=== PATIENT | male | born 1985 ===

== ENCOUNTER 2016-10-28 15:56 | Observation (INO) | payer OTHER ==
[2016-10-28 16:40] VITALS: O2SAT 99
[2016-10-28] MEDS ORDERED: Sodium Chloride 0.9% 1,000 ML IV STA (17:29)
--- NOTE | 2016-10-28 17:43 | ED PDOC ---
HPI: Abdomen Time Seen by Provider: 10/28/16 17:13 Chief Complaint (Nursing): Abdominal Pain Chief Complaint (Provider): Abdominal Pain/Vomiting History Per: Patient History/Exam Limitations: no limitations Onset/Duration Of Symptoms: Days (x1) Associated Symptoms: Fever, Vomiting, Diarrhea Additional Complaint(s): 17:13 Lloyd Rodriguez is a 31 year old male that presents to the ED with a chief complaint of abdominal pain, vomiting, and diarrhea. Patient states that he had diarrhea yesterday with an associated fever and that when he woke up this morning, he had abdominal pain and began vomiting. He was seen in the ED last month for a similar issue. Patient says that he has octopus for dinner last night, and that his pain is not worsened with food. PMD: None Past Medical History Reviewed: Historical Data, Nursing Documentation, Vital Signs Vital Signs: Last Vital Signs Temp 98.4 F 10/29/16 00:36 Pulse 80 10/29/16 00:36 Resp 16 10/29/16 00:36 BP 124/75 10/29/16 00:36 Pulse Ox 99 10/29/16 00:36 - Medical History PMH: Hypothyroidism Denies: Chronic Kidney Disease - Family History Family History: States: Unknown Family Hx - Immunization History Hx Tetanus Toxoid Vaccination: No Hx Influenza Vaccination: No Hx Pneumococcal Vaccination: No - Home Medications Home Medications: Ambulatory Orders Medication Instructions Recorded Flecainide Acetate 50 mg PO BID 09/25/13 Thyroid [Bronson Thyroid] 30 mg PO DAILY 09/25/13 Famotidine [Pepcid] 20 mg PO Q12 #14 tab 11/18/15 Ondansetron ODT [Zofran ODT] 4 mg PO Q6 PRN #16 odt 11/18/15 Ciprofloxacin [Cipro] 500 mg PO BID 7 Days 09/21/16 metroNIDAZOLE [Flagyl] 500 mg PO BID 7 Days 09/21/16 Ciprofloxacin [Cipro] 500 mg PO BID 7 Days 10/29/16 metroNIDAZOLE [Flagyl] 500 mg PO BID 7 Days 10/29/16 - Allergies Allergies/Adverse Reactions: Allergies Allergy/AdvReac Type Severity Reaction Status Date / Time No Known Allergies Allergy Verified 10/28/16 16:34 Review of Systems Constitutional: Positive for: Fever Gastrointestinal: Positive for: Vomiting, Abdominal Pain, Diarrhea Physical Exam - Reviewed Nursing Documentation Reviewed: Yes Vital Signs Reviewed: Yes - Physical Exam Appears: Positive for: Non-toxic, No Acute Distress Head Exam: Positive for: ATRAUMATIC, NORMOCEPHALIC Skin: Positive for: Normal Color, Dry ENT: Positive for: Other (dry mucous membranes). Negative for: Normal ENT Inspection Cardiovascular/Chest: Positive for: Regular Rate, Rhythm. Negative for: Murmur Respiratory: Positive for: Normal Breath Sounds. Negative for: Respiratory Distress Gastrointestinal/Abdominal: Positive for: Soft, Tenderness (RUQ tenderness), Other (negative Lloyd's sign). Negative for: Guarding, Rebound Neurologic/Psych: Positive for: Alert, Oriented - Laboratory Results Result Diagrams: 10/28/16 18:06 10/28/16 18:06 - ECG O2 Sat by Pulse Oximetry: 99 (RA) Pulse Ox Interpretation: Normal - CT Scan/US RUQ ultrasound Other Rad Studies (CT/US): Radiology Report Reviewed (Mild fatty infiltration of the liver with minimal focal fatty sparing adjacent to the gallbladder fossa. The remainder of the examination is unremarkable. Suboptimal visualization of pancreas.) Medical Decision Making Medical Decision Makin:25 Initial Impression: Abdominal Pain/Vomiting/Diarrhea Initial Plan: * CMP * CBC * PTT * PT * Lipase * Urine dipstick * Urinalysis * Sodium Chloride 1000 mL at 1000 mLs/hr * Morphine 2 mg IV * Zofran 4 mg IV * US Abdomen * Reevaluation Scribe Attestation: Documented by Yuli Anderson, acting as a scribe for Lizzie Owens MD. Provider Scribe Attestation: All medical record entries made by the Scribe were at my direction and personally dictated by me. I have reviewed the chart and agree that the record accurately reflects my personal performance of the history, physical exam, medical decision making, and the department course for this patient. I have also personally directed, reviewed, and agree with the discharge instructions and disposition. ED OBSERVATION Time of observation admission: 18:50 Disposition - Clinical Impression Clinical Impression: Colitis - Patient ED Disposition Is Patient to be Admitted: Transfer of Care - Disposition Disposition: Transfer of Care Disposition Time: 19:00 Condition: IMPROVED Patient Signed Over To: Ady Carballo Handoff Comments: Pending CT.
[2016-10-28 18:12] LABS: BASO # 0.1 K/uL (0.0-0.2); BASO % 0.4 % (0.0-2.0); EOS % 0.1 % (0.0-4.0); LYMPH # 0.9 K/uL (1.0-4.3); LYMPH % 4.1 % (20.0-40.0); MEAN CELL VOLUME 89.8 fl (80.0-94.0); MEAN CORPUSCULAR HEMOGLOBIN 30.2 pg (27.0-31.0); MEAN CORPUSCULAR HGB CONC 33.6 g/dL (33.0-37.0); MEAN PLATELET VOLUME 8.5 fl (7.2-11.7); MONO % 4.6 % (0.0-10.0); NEUT # 19.3 K/uL (1.8-7.0); NEUT % 90.8 % (50.0-75.0); PLATELET COUNT 250 K/uL (130-400); RED CELL DISTRIBUTION WIDTH 13.7 % (11.5-14.5); WHITE BLOOD COUNT 21.2 K/uL (4.8-10.8)
[2016-10-28 18:30] LABS: ALB/GLOB RATIO 1.4 (1.0-2.1); ALKALINE PHOSPHATASE 113 U/L (38-126); ALT/SGPT 49 U/L (21-72); AST/SGOT 46 U/L (17-59); BILIRUBIN,TOTAL 0.6 mg/dl (0.2-1.3); BLOOD UREA NITROGEN 14 mg/dl (9-20); CALCIUM 9.8 mg/dL (8.4-10.2); CARBON DIOXIDE 23 mmol/L (22-30); CHLORIDE 103 mmol/L (98-107); GFR AFRICAN-AMERICAN > 60; GLUCOSE,RANDOM 99 mg/dL (75-110); LIPASE 32 U/L (23-300); POTASSIUM 4.3 MMOL/L (3.6-5.0); SODIUM 144 mmol/l (132-148); TOTAL PROTEIN 8.3 G/DL (6.3-8.2)
[2016-10-28 18:38] LABS: RBC URINE 5 /hpf (0-3); URINE BACTERIA FEW (<OCC); URINE BILIRUBIN NEGATIVE (NEGATIVE); URINE BLOOD NEGATIVE (NEGATIVE); URINE COLOR AMBER (YELLOW); URINE GLUCOSE (UA) NEG (Normal); URINE KETONE 80 mg/dL (NEGATIVE); URINE LEUKOCYTE ESTERASE TRACE Leu/uL (Negative); URINE PROTEIN 100 mg/dL (NEGATIVE); URINE UROBILINOGEN 0.2-1.0 mg/dL (0.2-1.0); WBC URINE 4 /hpf (0-5)
[2016-10-28] MEDS ORDERED: Iohexol 240 (50 ml) PO STA (18:51)
[2016-10-28 19:50] LABS: NEUTROPHIL 89 % (42-75); TOTAL CELLS COUNTED 100
--- NOTE | 2016-10-28 20:10 | ED PDOC ---
- Laboratory Results Result Diagrams: 10/28/16 18:06 10/28/16 18:06 - ECG O2 Sat by Pulse Oximetry: 99 (RA) Medical Decision Making Medical Decision Makin:00 Patient transferred over to me by Dr. Lizzie Owens pending ED workup. 0024: CT A/P impression: 1. Questionable mild diffuse colonic wall thickening versus underdistention. This could represent a mild colitis. Please correlate clinically. 0029: Patient feeling better and will be referred to GI outpatient. Stable for d /c. Scribe Attestation: Documented by Yuli Anderson, acting as a scribe for Ady Carballo MD. Provider Scribe Attestation: All medical record entries made by the Scribe were at my direction and personally dictated by me. I have reviewed the chart and agree that the record accurately reflects my personal performance of the history, physical exam, medical decision making, and the department course for this patient. I have also personally directed, reviewed, and agree with the discharge instructions and disposition. Disposition - Clinical Impression Clinical Impression: Colitis - POA Present On Arrival: None - Disposition Disposition: Routine/Home Disposition Time: 00:30 Condition: IMPROVED
[2016-10-28] MEDS ORDERED: Iohexol 300 100 ML IJ ONE (20:46)
[2016-10-28] MEDS ORDERED: Sodium Chloride 0.9% 50 ML IV ONE (20:47)
--- NOTE | 2016-10-29 00:25 | CT ---
EXAM: CT Abdomen and Pelvis With Intravenous Contrast CLINICAL HISTORY: 31 years old, male; Pain; Abdominal pain; Generalized; Additional info: R sided abd pain. Fever diarrhiea. Sent ed physician doc. TECHNIQUE: Axial computed tomography images of the abdomen and pelvis with intravenous contrast. This CT exam was performed using one or more of the following dose reduction techniques: automated exposure control, adjustment of the mA and/or kV according to patient size, and/or use of iterative reconstruction technique. Coronal and sagittal reformatted images were created and reviewed. CONTRAST: 95 mL of [id number] administered intravenously. COMPARISON: CT - ABD PELVIS PO IV CONTRAST 09/21/2016 12:56:39 AM FINDINGS: Lower thorax: There is minimal bibasilar atelectasis. ABDOMEN: Liver: There is a diffuse decrease in hepatic parenchymal density, consistent with fatty infiltration. Gallbladder and bile ducts: The gallbladder is contracted but otherwise normal. No calcified stones. No ductal dilation. Pancreas: The pancreas is normal. No ductal dilation. Spleen: The spleen is normal. Adrenals: The adrenal glands are normal. Kidneys and ureters: The kidneys are normal. No hydronephrosis. Stomach and bowel: Questionable mild diffuse colonic wall thickening versus underdistention. This could represent a mild colitis. Please correlate clinically. The stomach is normal. There is no evidence of intestinal obstruction. Appendix: A normal appendix is identified. PELVIS: Bladder: Bladder is decompressed. Reproductive: The prostate gland and seminal vesicles are normal. ABDOMEN and PELVIS: Intraperitoneal space: There is no evidence of free intraperitoneal fluid. There is no free intraperitoneal air. Bones/joints: No acute fracture. No dislocation. Soft tissues: There is a tiny fat containing right inguinal hernia. Vasculature: The aorta is normal. No abdominal aortic aneurysm. Lymph nodes: There is no evidence of lymphadenopathy. IMPRESSION: 1. Questionable mild diffuse colonic wall thickening versus underdistention. This could represent a mild colitis. Please correlate clinically.
[2016-10-29 00:37] VITALS: BP 124/75; PULSE 80; RESP 16; TEMP 98.4
--- NOTE | 2016-10-29 11:30 | US ---
HISTORY: RUQ pain, vomiting, diarrhea COMPARISON: None. TECHNIQUE: Sonographic evaluation of the right upper quadrant of the abdomen. FINDINGS: LIVER: Measures 14.3 cm in length. Probable mild diffuse increased echogenicity of the liver parenchyma. Focal fatty sparing noted about gallbladder. No mass. No biliary dilatation. GALLBLADDER: Unremarkable. No gallstones. COMMON BILE DUCT: Measures 5 mm. No stones. No dilatation. PANCREAS: Could not be adequately evaluated due to overlying bowel gas. RIGHT KIDNEY: Measures 11.4 cm in length. Normal echogenicity. No calculus, mass, or hydronephrosis. AORTA: No aneurysmal dilatation. IVC: Unremarkable. OTHER FINDINGS: None . IMPRESSION: Mild fatty infiltration of the liver with minimal focal fatty sparing adjacent to the gallbladder fossa. The remainder of the examination is unremarkable. Suboptimal visualization of pancreas.
== END 2016-10-29 00:29 | disposition home or self-care (01) ==
LOC: H.ER 15:56 → H.EROBSV 18:50
PROVIDERS: ADMIT Emergency Medicine; ATTEND Emergency Medicine
DX: K52.9 Noninfective gastroenteritis and colitis, unspecified (principal); E03.9 Hypothyroidism, unspecified

== ENCOUNTER 2017-11-25 13:05 | Emergency (ER) | payer SELFPAY ==
[2017-11-25 13:35] VITALS: BP 132/79; PULSE 61; RESP 16; TEMP 97.9; O2SAT 99
[2017-11-25] MEDS ORDERED: Naproxen 500 MG TAB PO STA (14:31)
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
== END 2017-11-25 14:45 | disposition home or self-care (01) ==
LOC: H.ER 13:05
DX: M54.5 Low back pain (principal); R21 Rash and other nonspecific skin eruption; E03.9 Hypothyroidism, unspecified

== ENCOUNTER 2018-08-28 05:15 | Observation (INO) | payer MEDICAID ==
--- NOTE | 2018-08-28 06:09 | ED PDOC ---
HPI: Chest Pain Time Seen by Provider: 08/28/18 05:20 Chief Complaint (Nursing): Abdominal Pain Chief Complaint (Provider): Abdominal Pain History Per: Patient, Family (mother) Onset/Duration Of Symptoms: Persistent Current Symptoms Are (Timing): Still Present Quality: "Pain" Additional Complaint(s): 32 year old male with a history of HTN presents to the ED with chronic abdominal pain and vomiting since last night. Patient's mother, who he lives with, reports that around 11 pm last night, he began vomiting a bilious substance multiple times with severe right sided abdominal pain. According to mother, he has experienced abdominal pain for 14 years. Denies fever. PMD: none provided Past Medical History Reviewed: Historical Data, Nursing Documentation, Vital Signs Vital Signs: Last Vital Signs Temp 98.1 F 08/28/18 05:34 Pulse 75 08/28/18 05:34 Resp 18 08/28/18 05:34 BP 147/105 H 08/28/18 05:34 Pulse Ox 100 08/28/18 05:34 - Medical History PMH: Hypothyroidism Denies: Chronic Kidney Disease - Surgical History Surgical History: No Surg Hx - Family History Family History: States: Unknown Family Hx - Social History Current smoker - smoking cessation education provided: No Alcohol: None Drugs: Denies - Immunization History Hx Tetanus Toxoid Vaccination: No Hx Influenza Vaccination: No Hx Pneumococcal Vaccination: No - Home Medications Home Medications: Ambulatory Orders Medication Instructions Recorded RX: No Known Home Med 08/28/18 - Allergies Allergies/Adverse Reactions: Allergies Allergy/AdvReac Type Severity Reaction Status Date / Time No Known Allergies Allergy Verified 08/28/18 05:40 Review of Systems ROS Statement: Except As Marked, All Systems Reviewed And Found Negative Gastrointestinal: Positive for: Vomiting (bilious), Abdominal Pain (right sided). Negative for: Constipation, Hematochezia, Hematemesis Physical Exam - Reviewed Nursing Documentation Reviewed: Yes Vital Signs Reviewed: Yes - Physical Exam Appears: Positive for: No Acute Distress Head Exam: Positive for: ATRAUMATIC, NORMAL INSPECTION, NORMOCEPHALIC Skin: Positive for: Normal Color, Warm, Dry Eye Exam: Positive for: Normal appearance, EOMI, PERRL Neck: Positive for: Normal, Painless ROM, Supple Cardiovascular/Chest: Positive for: Regular Rate, Rhythm. Negative for: Murmur Respiratory: Positive for: Normal Breath Sounds. Negative for: Respiratory Distress Gastrointestinal/Abdominal: Positive for: Bowel Sounds, Soft, Tenderness (right sided tenderness). Negative for: Mass, Guarding, Rebound Extremity: Positive for: Normal ROM. Negative for: Deformity Neurologic/Psych: Positive for: Alert, Oriented (x 3). Negative for: Motor/Sensory Deficits - Laboratory Results Result Diagrams: 08/28/18 12:25 08/28/18 06:15 - ECG O2 Sat by Pulse Oximetry: 100 (RA) Pulse Ox Interpretation: Normal Medical Decision Making Medical Decision Makin:12 Impression: abdominal pain and vomiting Initial Plan: , acut e on chronic --CMP --CBC --Omnipaque 50 ml PO --Toradol 30 mg IV --NS IV --Zofran 4 mg IV 07:00 --Patient will be signed out to Dr. Stover pending workup and disposition. ----- Scribe Attestation: Documented by Simran Vance acting as a scribe for Edil Bashir MD Provider Scribe Attestation: All medical record entries made by the Scribe were at my direction and personally dictated by me. I have reviewed the chart and agree that the record accurately reflects my personal performance of the history, physical exam, medical decision making, and the department course for this patient. I have also personally directed, reviewed, and agree with the discharge instructions and disposition. Disposition - Clinical Impression Clinical Impression: Abdominal pain, Leukocytosis - Patient ED Disposition Is Patient to be Admitted: Transfer of Care - Disposition Disposition: Transfer of Care Disposition Time: 07:00 Condition: FAIR Patient Signed Over To: Riki Stover
[2018-08-28] MEDS ORDERED: Sodium Chloride 0.9% 1,000 ML IV STA (06:12)
[2018-08-28] MEDS ORDERED: Iohexol 240 (50 ml) PO ONE (06:12)
[2018-08-28] MEDS ORDERED: Iohexol 240 (50 ml) ONE (06:16)
--- NOTE | 2018-08-28 07:22 | ED PDOC ---
- Laboratory Results Result Diagrams: 08/28/18 12:25 08/28/18 06:15 - ECG O2 Sat by Pulse Oximetry: 100 (RA) Pulse Ox Interpretation: Normal Medical Decision Making Medical Decision Makin Patient was endorsed by Dr. Bashir, pending work up. Scribe Attestation: Documented by Justen Wagoner, acting as a scribe for Riki Stover MD. No significant drop in WBC with left shift on CBC. CT abd/pelvis unremarkable. Discussed with Dr. Guy will start IV antibiotics for colitis and obtain GI consult. Provider Scribe Attestation: All medical record entries made by the Scribe were at my direction and personally dictated by me. I have reviewed the chart and agree that the record accurately reflects my personal performance of the history, physical exam, medical decision making, and the department course for this patient. I have also personally directed, reviewed, and agree with the discharge instructions and disposition. Disposition - Clinical Impression Clinical Impression: Abdominal pain, Leukocytosis - POA Present On Arrival: None - Disposition Disposition: Hospitalized as Observation Patient Disposition Time: 13:01 Condition: FAIR Forms: [employer] (Irish)
[2018-08-28 08:00] LABS: BASO % 0.1 % (0.0-2.0); EOS % 0.1 % (0.0-4.0); HEMOGLOBIN 16.2 g/dL (12.0-18.0); LYMPH # 1.3 K/uL (1.0-4.3); LYMPH % 6.6 % (20.0-40.0); MEAN CELL VOLUME 92.8 fl (80.0-94.0); MEAN CORPUSCULAR HEMOGLOBIN 30.1 pg (27.0-31.0); MEAN CORPUSCULAR HGB CONC 32.5 g/dL (33.0-37.0); MEAN PLATELET VOLUME 8.9 fl (7.2-11.7); MONO # 0.5 K/uL (0.0-0.8); MONO % 2.9 % (0.0-10.0); NEUT # 17.1 K/uL (1.8-7.0); NEUT % 90.3 % (50.0-75.0); NRBC % 0.1 % (0.0-0.0); PLATELET COUNT 344 K/uL (130-400); RBC 5.38 Mil/uL (4.40-5.90); RED CELL DISTRIBUTION WIDTH 13.3 % (11.5-14.5)
[2018-08-28 08:06] LABS: ALB/GLOB RATIO 1.5 (1.0-2.1); ALT/SGPT 62 U/L (21-72); AST/SGOT 37 U/L (17-59); BLOOD UREA NITROGEN 13 mg/dl (9-20); CALCIUM 10.2 mg/dL (8.4-10.2); GFR NON-AFRICAN AMERICAN > 60
--- NOTE | 2018-08-28 09:38 | CT ---
Date of service: 08/28/2018 PROCEDURE: CT Abdomen and Pelvis without IV contrast HISTORY: abd pain r sided COMPARISON: Comparison is made with 10/28/2016 TECHNIQUE: Contrast dose: 0 IV contrast. Axial and reformatted coronal and sagittal CT images of the abdomen and pelvis were obtained after oral contrast administration. No IV contrast was given. Radiation dose: Total exam DLP = 836.74 mGy-cm. This CT exam was performed using one or more of the following dose reduction techniques: Automated exposure control, adjustment of the mA and/or kV according to patient size, and/or use of iterative reconstruction technique. FINDINGS: LOWER THORAX: Unremarkable. LIVER: Heterogeneous attenuation of the liver which is mildly enlarged noted. Findings likely represent moderate hepatic steatosis. GALLBLADDER AND BILE DUCTS: Unremarkable. PANCREAS: Unremarkable. No gross lesion or ductal dilatation. SPLEEN: Unremarkable. ADRENALS: Unremarkable. No mass. KIDNEYS AND URETERS: Slightly dilated right kidney collecting system without evidence of obstructing stone. No evidence of significant perinephric stranding. No hydronephrosis. No solid mass. VASCULATURE: Unremarkable. No aortic aneurysm. No aortic atherosclerotic calcification or mural plaque present. BOWEL: Unremarkable. No obstruction. No gross mural thickening. Few colonic diverticulosis noted without evidence of diverticulitis. APPENDIX: Normal appendix. PERITONEUM: Unremarkable. No free fluid. No free air. LYMPH NODES: Unremarkable. No enlarged lymph nodes. BLADDER: Unremarkable. REPRODUCTIVE: Unremarkable. BONES: No acute fracture. OTHER FINDINGS: There is a small fat containing right inguinal hernia noted. IMPRESSION: No evidence of hydronephrosis or obstructing renal calculi. No evidence of cholecystitis pancreatitis or appendicitis. Small fat containing right inguinal hernia noted.
[2018-08-28 12:12] LABS: LYMPHOCYTE 8 % (20-50); MONOCYTE 3 % (0-10); NEUTROPHIL 89 % (42-75); PLATELET ESTIMATE NORMAL (NORMAL); TOTAL CELLS COUNTED 100
[2018-08-28 12:36] LABS: BASO % 0.2 % (0.0-2.0); HEMOGLOBIN 15.1 g/dL (12.0-18.0); LYMPH # 1.4 K/uL (1.0-4.3); LYMPH % 7.7 % (20.0-40.0); MEAN CELL VOLUME 89.3 fl (80.0-94.0); MEAN CORPUSCULAR HEMOGLOBIN 30.2 pg (27.0-31.0); MEAN CORPUSCULAR HGB CONC 33.9 g/dL (33.0-37.0); MEAN PLATELET VOLUME 8.6 fl (7.2-11.7); MONO # 0.7 K/uL (0.0-0.8); MONO % 3.9 % (0.0-10.0); NEUT # 16.5 K/uL (1.8-7.0); NEUT % 88.2 % (50.0-75.0); RBC 4.99 Mil/uL (4.40-5.90); RED CELL DISTRIBUTION WIDTH 13.3 % (11.5-14.5); WHITE BLOOD COUNT 18.7 K/uL (4.8-10.8)
[2018-08-28] MEDS ORDERED: metroNIDAZOLE 500mg/100ml NS 100 ML IVPB STA (12:56)
[2018-08-28] MEDS ORDERED: cefTRIAXone (Rocephin) 1 gm Inj ONE (13:42)
[2018-08-28 13:56] LABS: VENOUS BLOOD GAS PCO2 44 mmHg (40-60); VENOUS BLOOD GAS PO2 65 mm/Hg (30-55)
--- NOTE | 2018-08-28 14:21 | RAD ---
Date of service: 08/28/2018 HISTORY: Leukocytosis COMPARISON: No prior. TECHNIQUE: Chest PA and lateral FINDINGS: LUNGS: No active pulmonary disease. PLEURA: No significant pleural effusion identified. No pneumothorax apparent. CARDIOVASCULAR: No aortic atherosclerotic calcification present. Normal cardiac size. No pulmonary vascular congestion. OSSEOUS STRUCTURES: No significant abnormalities. VISUALIZED UPPER ABDOMEN: Normal. OTHER FINDINGS: None. IMPRESSION: No active disease.
[2018-08-28 14:52] LABS: SQUAMOUS EPITHIAL < 1 /hpf (0-5); URINE AMORPHOUS SEDIMENT RARE /ul (<OCC); URINE BILIRUBIN NEGATIVE (NEGATIVE); URINE BLOOD NEGATIVE (NEGATIVE); URINE CLARITY SLIGHTY-CLOUDY (Clear); URINE COLOR YELLOW (YELLOW); URINE GLUCOSE (UA) NEG (NEGATIVE); URINE LEUKOCYTE ESTERASE NEG Leu/uL (Negative); URINE PROTEIN 30 mg/dL (NEGATIVE); URINE UROBILINOGEN 0.2-1.0 mg/dL (0.2-1.0)
[2018-08-28] MEDS ORDERED: metroNIDAZOLE 500mg/100ml NS 100 ML IVPB ONE (15:31)
[2018-08-28] MEDS ORDERED: Morphine 4 MG/ML VIAL IVP PRN (17:25)
[2018-08-28 17:31] VITALS: RESP 20
[2018-08-28] MEDS: Dextrose 5%/0.45% NS 1,000 ML IV SCH (18:01)
[2018-08-29] MEDS: Dextrose 5%/0.45% NS 1,000 ML IV SCH (05:31)
--- NOTE | 2018-08-29 09:50 | CP.PCM.CON ---
History of Present Illness - History of Present Illness History of Present Illness: GI consult note for Dr. Aldana Consulted for abdominal pain, nausea, diarrhea Pt is a 32M with PMH of HTN who presented to the ED for epigastric abdominal pain, nausea, vomiting, and diarrhea. Pain has improved but is still present. No further nausea or vomiting since being admitted but still having episodes of diarrhea. Denies any melena, hematochezia, hematemesis, or bilious emesis, fevers, chills, dysuria, hematuria, or any other symptoms. 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 Patient has been to the ED approximately once a year for the past several years for similar symptoms with CT showing possible mild colitis and US's showing no gallstones and fatty liver in 09/2016 PMH: HTN PSH: L Orchiectomy as a child ALL: NKDA Social: drinks several shots of liquour socially a few times a month, smokes hooka occasionally, denies drugs Family history: mother had surgery for gallstones and kidney stones Review of Systems - Review of Systems All systems: reviewed and no additional remarkable complaints except (as per HPI) Past Patient History - Past Medical History & Family History Past Medical History?: Yes Pertinent Family History: mother: kidney stones with surgery and gallstones with surgery - Past Social History Smoking Status: hooka occasionally Alcohol: Social Drugs: Denies - CARDIAC Hx Cardiac Disorders: No - PULMONARY Hx Respiratory Disorders: No - NEUROLOGICAL Hx Neurological Disorder: No - HEENT Hx HEENT Problems: No - RENAL Hx Chronic Kidney Disease: No - ENDOCRINE/METABOLIC Hx Hypothyroidism: Yes - HEMATOLOGICAL/ONCOLOGICAL Hx Blood Disorders: No - INTEGUMENTARY Hx Dermatological Problems: No - MUSCULOSKELETAL/RHEUMATOLOGICAL Hx Musculoskeletal Disorders: No Hx Falls: No - GASTROINTESTINAL Hx Gastrointestinal Disorders: Yes Hx Nausea: Yes Hx Vomiting: Yes Other/Comment: Abdominal pain - GENITOURINARY/GYNECOLOGICAL Hx Genitourinary Disorders: No - PSYCHIATRIC Hx Psychophysiologic Disorder: No Hx Substance Use: No - SURGICAL HISTORY Hx Surgeries: Yes (Left testicle removed) - ANESTHESIA Hx Anesthesia: Yes Hx Anesthesia Reactions: No Meds Allergies/Adverse Reactions: Allergies Allergy/AdvReac Type Severity Reaction Status Date / Time No Known Allergies Allergy Verified 08/28/18 05:40 - Medications Medications: Current Medications Dextrose/Sodium Chloride (Dextrose 5%/0.45% Ns 1000 Ml) 1,000 mls @ 80 mls/hr IV .[id number] ELVIS Stop: 08/29/18 17:25 Last Admin: 08/29/18 05:31 Dose: 80 mls/hr Morphine Sulfate (Morphine) 2 mg IVP Q4 PRN PRN Reason: Pain, moderate (4-7) Last Admin: 08/28/18 18:09 Dose: 2 mg Physical Exam - Constitutional Appears: Well, Non-toxic, No Acute Distress - Head Exam Head Exam: ATRAUMATIC, NORMOCEPHALIC - Eye Exam Eye Exam: Normal appearance. absent: Conjunctival injection, Scleral icterus - ENT Exam ENT Exam: Mucous Membranes Moist - Respiratory Exam Respiratory Exam: NORMAL BREATHING PATTERN. absent: Accessory Muscle Use, Respiratory Distress - GI/Abdominal Exam GI & Abdominal Exam: Soft. absent: Distended, Rebound, Tenderness Additional comments: briscoe's sign negative - Extremities Exam Extremities exam: Positive for: pedal pulses present. Negative for: calf tenderness, pedal edema - Neurological Exam Neurological exam: Alert, Oriented x3 - Psychiatric Exam Psychiatric exam: Normal Affect, Normal Mood - Skin Skin Exam: Dry, Normal Color, Warm Results - Vital Signs Recent Vital Signs: Last Vital Signs Temp 98 F 08/29/18 08:16 Pulse 54 L 08/29/18 08:16 Resp 20 08/29/18 08:16 BP 151/79 H 08/29/18 08:16 Pulse Ox 97 08/29/18 08:16 - Labs Result Diagrams: 08/28/18 12:25 08/28/18 06:15 Labs: Laboratory Results - last 24 hr 08/28/18 08/28/18 08/28/18 06:15 12:25 13:50 WBC 18.7 H RBC 4.99 Hgb 15.1 Hct 44.6 MCV 89.3 D MCH 30.2 MCHC 33.9 RDW 13.3 Plt Count 277 MPV 8.6 Neut % (Auto) 88.2 H Lymph % (Auto) 7.7 L Ransom % (Auto) 3.9 Eos % (Auto) 0.0 Baso % (Auto) 0.2 Neut # (Auto) 16.5 H Lymph # (Auto) 1.4 Ransom # (Auto) 0.7 Eos # (Auto) 0.0 Baso # (Auto) 0.0 Neutrophils % (Manual) 89 H Lymphocytes % (Manual) 8 L Monocytes % (Manual) 3 Platelet Estimate Normal RBC Morphology Normal pO2 65 H VBG pH 7.40 VBG pCO2 44 VBG HCO3 26.4 VBG Total CO2 28.7 H VBG O2 Sat (Calc) 96.4 H VBG Base Excess 2.0 VBG Potassium 4.1 Sodium 136.0 Chloride 105.0 Glucose 109 Lactate 1.4 FiO2 21.0 Venous Blood Potassium 4.1 Urine Color Urine Clarity Urine pH Ur Specific [place] Urine Protein Urine Glucose (UA) Urine Ketones Urine Blood Urine Nitrate Urine Bilirubin Urine Urobilinogen Ur Leukocyte Esterase Urine Microscopic WBC Ur Squamous Epith Cells Amorphous Sediment 08/28/18 14:23 WBC RBC Hgb Hct MCV MCH MCHC RDW Plt Count MPV Neut % (Auto) Lymph % (Auto) Ransom % (Auto) Eos % (Auto) Baso % (Auto) Neut # (Auto) Lymph # (Auto) Ransom # (Auto) Eos # (Auto) Baso # (Auto) Neutrophils % (Manual) Lymphocytes % (Manual) Monocytes % (Manual) Platelet Estimate RBC Morphology pO2 VBG pH VBG pCO2 VBG HCO3 VBG Total CO2 VBG O2 Sat (Calc) VBG Base Excess VBG Potassium Sodium Chloride Glucose Lactate FiO2 Venous Blood Potassium Urine Color Yellow Urine Clarity Slighty-cloudy Urine pH 7.0 Ur Specific [place] 1.029 Urine Protein 30 Urine Glucose (UA) Neg Urine Ketones Negative Urine Blood Negative Urine Nitrate Negative Urine Bilirubin Negative Urine Urobilinogen 0.2-1.0 Ur Leukocyte Esterase Neg Urine Microscopic WBC 1 Ur Squamous Epith Cells < 1 Amorphous Sediment Rare H Assessment & Plan - Assessment and Plan (Free Text) Assessment: 32M with abdominal pain, nausea, vomiting and diarrhea Plan: Advance to [facility] as tolerated F/U amylase and lipase IVF PRN nausea and pain medication May consider abdominal US Seen and discussed with Dr. Jovan Perla, PGY2
[2018-08-29] MEDS ORDERED: Ciprofloxacin 400mg/200ml D5W 400 MG/200 ML BAG IVPB SCH (10:00)
[2018-08-29 10:50] LABS: HEMOGLOBIN 15.9 g/dL (12.0-18.0); MEAN CELL VOLUME 92.2 fl (80.0-94.0); MEAN CORPUSCULAR HEMOGLOBIN 30.3 pg (27.0-31.0); MEAN CORPUSCULAR HGB CONC 32.8 g/dL (33.0-37.0); RBC 5.25 Mil/uL (4.40-5.90); RED CELL DISTRIBUTION WIDTH 13.1 % (11.5-14.5); WHITE BLOOD COUNT 11.4 K/uL (4.8-10.8)
[2018-08-29 11:00] LABS: AMYLASE 52 U/L (30-110); BLOOD UREA NITROGEN 10 mg/dl (9-20); GFR NON-AFRICAN AMERICAN > 60; LIPASE 23 U/L (23-300)
[2018-08-29] MEDS: metroNIDAZOLE 500mg/100ml NS 100 ML IVPB SCH ×2 (12:04→17:48)
--- NOTE | 2018-08-29 14:43 | CP.PCM.HP ---
History of Present Illness - History of Present Illness History of Present Illness: CC: Abdominal pain. 32 y/o M, PMHx of Mild Colitis, L testicle removed at 3 yrs old and several admissions to hospital 2nd to abdominal pain. Pt appear on 08/28/18 to ER [facility]ONY, Greta, c/o of generalized abdominal pain radiated to lower quadrants R>L, described as constant, cramping, moderate intensity 7:10, associated to nausea, vomiting, non bloody, diarrhea with no relief. Onset of pain day [employer] after he ate a Hamburger. Worsening symptoms: Increased irritability from pain. Aggravated factor: Changing positions. Pt denied: Fever, chills, urinary symptoms, CP, palpitations, back pain, SOB, sick contact, recent travel out of [facility]. Abd/Pelvis CT: No evidence of Hydronephrosis or obstructing renal calculi, no Cholecystitis, Pancreatitis or Appendicitis. CXR: No active disease. Present on Admission - Present on Admission Any Indicators Present on Admission: No Review of Systems - Constitutional Constitutional: Other (negative) - EENT Eyes: Other (negative) Ears: Other (negative) Nose/Mouth/Throat: Other (negative) - Cardiovascular Cardiovascular: Other (negative) - Respiratory Respiratory: Other (negative) - Gastrointestinal Gastrointestinal: Abdominal Pain, Diarrhea, Nausea, Vomiting - Genitourinary Genitourinary: Other (negative) - Musculoskeletal Musculoskeletal: Other (negative) - Integumentary Integumentary: Other (negative) - Neurological Neurological: Other (negative) - Psychiatric Psychiatric: Other (negative) - Endocrine Endocrine: Other (negative) - Hematologic/Lymphatic Hematologic: Other (negative) Past Patient History - Past Medical History & Family History Past Medical History?: Yes Pertinent Family History: Mother: Gallstones, Kidney stones. - Past Social History Smoking Status: hooka occasionally Alcohol: Social Drugs: Denies Home Situation {Lives}: With Family - CARDIAC Hx Cardiac Disorders: No - PULMONARY Hx Respiratory Disorders: No - NEUROLOGICAL Hx Neurological Disorder: No - HEENT Hx HEENT Problems: No - RENAL Hx Chronic Kidney Disease: No - ENDOCRINE/METABOLIC Hx Endocrine Disorders: Yes Hx Hypothyroidism: Yes - HEMATOLOGICAL/ONCOLOGICAL Hx Blood Disorders: No - INTEGUMENTARY Hx Dermatological Problems: No - MUSCULOSKELETAL/RHEUMATOLOGICAL Hx Musculoskeletal Disorders: No Hx Falls: No - GASTROINTESTINAL Hx Gastrointestinal Disorders: Yes Hx Nausea: Yes Hx Vomiting: Yes Other/Comment: Abdominal pain - GENITOURINARY/GYNECOLOGICAL Hx Genitourinary Disorders: No - PSYCHIATRIC Hx Psychophysiologic Disorder: No Hx Substance Use: No - SURGICAL HISTORY Hx Surgeries: Yes (Left testicle removed) - ANESTHESIA Hx Anesthesia: Yes Hx Anesthesia Reactions: No Meds Allergies/Adverse Reactions: Allergies Allergy/AdvReac Type Severity Reaction Status Date / Time No Known Allergies Allergy Verified 08/28/18 05:40 Physical Exam - Constitutional Appears: No Acute Distress - Head Exam Head Exam: NORMAL INSPECTION - Eye Exam Eye Exam: PERRL - ENT Exam ENT Exam: Normal Exam - Neck Exam Neck exam: Positive for: Normal Inspection - Respiratory Exam Respiratory Exam: NORMAL BREATHING PATTERN - Cardiovascular Exam Cardiovascular Exam: REGULAR RHYTHM - GI/Abdominal Exam GI & Abdominal Exam: Normal Bowel Sounds, Soft. absent: Distended, Tenderness - Extremities Exam Extremities exam: Positive for: normal inspection - Back Exam Back exam: NORMAL INSPECTION - Neurological Exam Neurological exam: Alert, Oriented x3 Additional comments: No motor/sensory deficit. - Psychiatric Exam Psychiatric exam: Normal Mood - Skin Skin Exam: Warm Results - Vital Signs Recent Vital Signs: Last Vital Signs Temp 98 F 08/29/18 08:16 Pulse 54 L 08/29/18 08:16 Resp 20 08/29/18 08:16 BP 151/79 H 08/29/18 08:16 Pulse Ox 97 08/29/18 08:16 reviewed Leighton - Labs Result Diagrams: 08/29/18 10:36 08/29/18 10:36 Labs: Laboratory Results - last 24 hr 08/28/18 08/29/18 08/29/18 14:23 10:36 10:36 WBC 11.4 H RBC 5.25 Hgb 15.9 Hct 48.4 MCV 92.2 D MCH 30.3 MCHC 32.8 L RDW 13.1 Plt Count 275 Sodium 140 Potassium 3.6 Chloride 100 Carbon Dioxide 24 Anion Gap 20 BUN 10 Creatinine 1.0 Est GFR ( Amer) > 60 Est GFR (Non-Af Amer) > 60 Random Glucose 141 H Calcium 9.0 Amylase 52 Lipase 23 Urine Color Yellow Urine Clarity Slighty-cloudy Urine pH 7.0 Ur Specific [place] 1.029 Urine Protein 30 Urine Glucose (UA) Neg Urine Ketones Negative Urine Blood Negative Urine Nitrate Negative Urine Bilirubin Negative Urine Urobilinogen 0.2-1.0 Ur Leukocyte Esterase Neg Urine Microscopic WBC 1 Ur Squamous Epith Cells < 1 Amorphous Sediment Rare H reiewed Clive.PBushra - Imaging and Cardiology CT scan - abdomen Status: Report reviewed by (Leighton) CT scan - pelvis Status: Report reviewed by (Leighton) Chest x-ray Status: Report reviewed by (Leighton) Assessment & Plan (1) Abdominal pain Status: Acute Priority: High (2) Leukocytosis Status: Acute Priority: High - Assessment and Plan (Free Text) Plan: F/U Blood C-S, Abdominal U-S, liquid diet, Continue Cipro, Protonix, Morphine and rest of Tx. GI consult appreciated. - Date & Time Date: 08/29/18 Time: 12:30
[2018-08-29 16:45] VITALS: BP 136/72; PULSE 58; TEMP 97.6; O2SAT 96
== END 2018-08-29 18:00 | disposition left against medical advice (07) ==
LOC: H.ER 05:15 → H.ERHOLD 12:57 → H.MEDSURG1 17:00
PROVIDERS: ADMIT Internal Medicine Pulmonary Disease; ATTEND Internal Medicine Pulmonary Disease
DX: K52.9 Noninfective gastroenteritis and colitis, unspecified (principal); Z90.79 Acquired absence of other genital organ(s); R07.9 Chest pain, unspecified; E03.9 Hypothyroidism, unspecified; I10 Essential (primary) hypertension
CPT/HCPCS: 36415; 71046; 74176; 80048; 80053; 81003; 82150; 82803; 83690; 85025; 85027; 87040; 96360; 96365; 99285; C9113; G0378; J0696; J0744; J1885; J2270; J2405; J7030; J7042; Q9966